=== PATIENT | male | born 1965 | race Caucasian/White ===

== ENCOUNTER 2024-11-01 16:40 | Emergency (ER) | payer OTHER ==
[~2024-11-01] VITALS: Ht 177.8 cm; Wt 113.4 kg
[2024-11-01] MEDS ORDERED: MELO-107 PO (16:50)
[2024-11-01] MEDS ORDERED: METF-440 PO (16:50)
[2024-11-01] MEDS ORDERED: ROSU20TA32 PO (16:50)
[2024-11-01] MEDS ORDERED: LOSA100T31 (16:50)
[2024-11-01] MEDS ORDERED: CARV12.52 PO (16:50)
[2024-11-01] MEDS ORDERED: AMLO-212 PO (16:50)
[2024-11-01] MEDS ORDERED: GLIP10TA11 (16:50)
[2024-11-01] MEDS ORDERED: OMEP20CA15 PO (16:50)
[2024-11-01] MEDS ORDERED: ONDANSETRON 4 MG/2 ML VIAL ONE ×2 (17:17→19:03)
[2024-11-01] MEDS: ONDANSETRON 4 MG/2 ML VIAL IV ONE ×2 (17:18→19:23)
[2024-11-01] MEDS: IV NORMAL SALINE 1000 ML BAG IV ONE (17:18)
[2024-11-01 17:31] LABS: PLATELET COUNT (AUTO) 224 K/uL (152-348); RED BLOOD CELL COUNT(AUTO) 4.70 MIL/uL (4.06-5.63); RED CELL DISTRIBUTION WIDTH 14.5 % (12.1-16.2); WHITE BLOOD COUNT (AUTO) 7.8 K/uL (3.6-10.2)
[2024-11-01 17:40] LABS: CREATININE 1.0 mg/dL (0.6-1.3); SODIUM SERUM 139 mmol/L (136-145); UREA NITROGEN, BLOOD 14 mg/dL (7-18)
[2024-11-01 17:45] LABS: ASPARTATE AMINOTRANSFERASE 17 U/L (15-37); TOTAL PROTEIN, SERUM 7.2 g/dL (6.4-8.2)
[2024-11-01] MEDS ORDERED: OXYCODONE/APAP 5-325 MG TABLET ONE (18:09)
[2024-11-01] MEDS: OXYCODONE/APAP 5-325 MG TABLET PO ONE (18:12)
[2024-11-01] MEDS ORDERED: CEFTRIAXONE /D5W 50ML IVPB **ER PYXIS IV ONE (18:34)
[2024-11-01] MEDS ORDERED: AZITHROMYCIN 500MG/ D5W 250ML IVPB **ER PYXIS ONLY IV ONE (18:34)
[2024-11-01] MEDS: AZITHROMYCIN IV 500 MG in IV DEXTROSE 5% 250 ML IV ONE (18:43)
[2024-11-01] MEDS ORDERED: METOCLOPRAMIDE HCL 10 MG/2 ML VIAL ONE (19:03)
[2024-11-01] MEDS ORDERED: diphenhydrAMINE 50 MG/1 ML VIAL ONE (19:03)
[2024-11-01 19:21] LABS: *BILIRUBIN,URIN NEGATIVE (NEGATIVE); *CLARITY,URINE CLEAR (CLEAR); *COLOR,URINE YELLOW (YELLOW); *KETONES,URINE 1+ (NEGATIVE); *PROTEIN,URINE NEGATIVE (NEGATIVE); *UROBILINOGEN,URINE 0.2 E.U./dl (NORMAL); LEUKOCYTE ESTERASE ,URINE NEGATIVE (NEGATIVE); NITRITE, URINE NEGATIVE (NEGATIVE); UGLUCOSE NEGATIVE (NEGATIVE)
[2024-11-01] MEDS: METOCLOPRAMIDE HCL 10 MG/2 ML VIAL IV ONE (19:23)
[2024-11-01] MEDS: diphenhydrAMINE 50 MG/1 ML VIAL IV ONE (19:23)
[2024-11-01 19:27] LABS: *BLOOD, URINE TRACE (NEGATIVE)
[2024-11-01 19:35] LABS: SQUAMOUS EPITHELIAL CELL,UR FEW /HPF (NONE SEEN)
[2024-11-01 21:50] VITALS: BP 141/91; O2SAT 93
== END 2024-11-01 22:04 | disposition short-term general hospital (02) ==
LOC: ER 16:43
DX: J18.9 Pneumonia, unspecified organism (principal); R11.2 Nausea with vomiting, unspecified; E11.9 Type 2 diabetes mellitus without complications; R06.02 Shortness of breath; G89.29 Other chronic pain; Z60.2 Problems related to living alone; Z20.822 Contact with and (suspected) exposure to COVID-19; Z79.1 Long term (current) use of non-steroidal anti-inflammatories (NSAID); Z79.84 Long term (current) use of oral hypoglycemic drugs; Z79.899 Other long term (current) drug therapy
CPT/HCPCS: 99285; 74176; 96365; 96375; 71045; 96361; 87426; 87804 ×2; 80076; 80048; 81001; 83880; 85025; 84145; 85379; 85730; 87040 ×2; 87086; 84484 ×2; 36415; 93005; 96368; 96376; 83605; J0456; J0696; J1200; J2765; J2405 ×2; J7040; A4606; A4663